=== PATIENT | female | born 1965 | race Caucasian/White ===

== ENCOUNTER → 2017-04-03 | Outpatient (CLI) | payer BC ==
--- NOTE | 2017-04-03 13:16 | MAMMOGRAPHY REPORT ---
BILATERAL DIGITAL SCREENING MAMMOGRAM TOMOSYNTHESIS WITH CAD: 04/03/2017 CLINICAL HISTORY: Routine screening. Patient has no complaints. TECHNIQUE: Breast tomosynthesis in addition to standard 2D mammography was performed. Current study was also evaluated with a Computer Aided Detection (CAD) system. COMPARISON: Comparison is made to exams dated: 03/29/2016 mammogram, 01/12/2015 mammogram, 01/11/2014 m ammogram, 01/05/2013 mammogram, 12/31/2011 mammogram, and 11/16/2010 [facility]. BREAST COMPOSITION: The tissue of both breasts is extremely dense, which lowers the sensitivity of m ammography. FINDINGS: A 3 cm asymmetry in the far superior posterior left breast, projecting over the pectoralis muscle on the MLO view appears similar in size and appearance dating back to at least 10/19/2008, the refore likely benign. No new suspicious mass, architectural distortion or cluster of microcalcificat ions is seen. IMPRESSION: ACR BI-RADS CATEGORY 1: NEGATIVE There is no mammographic evidence of malignancy. A 1 year screening mammogram is recommended. The pa tient will receive written notification of the results. Approximately 10% of breast cancers are not detected with mammography. A negative mammographic report should not delay biopsy if a clinically suggestive mass is present. Raine Martinez M.D. ay/:04/03/2017 09:25:26 Credit Controller: Sandrita JANG)([place]), [facility] letter sent: Normal 1/2 BI-RADS Code: ACR BI-RADS Category 1: Negative
== END ==
LOC: C.MAMM 07:46
PROVIDERS: ATTEND Physician Assistant
DX: Z12.31 Encounter for screening mammogram for malignant neoplasm of breast (principal)

== ENCOUNTER → 2017-06-20 | Outpatient (CLI) | payer BC ==
--- NOTE | 2017-06-20 13:04 | DIAGNOSTIC IMAGING REPORT ---
R SHOULDER MIN 2 VIEWS CLINICAL HISTORY: 52 years-old Female presenting with RIGHT SHOULDER PAIN. TECHNIQUE: Frontal and transscapular views of the right shoulder were obtained. COMPARISON: None. FINDINGS: Glenohumeral and acromioclavicular joints congruent. No acute fracture or malalignment. No radiographic soft tissue abnormality. Concave undersurface of the acromion. Apparent nodular opacity in the right apex. IMPRESSION: 1. No acute osseous injury of the right shoulder. 2. Apparent nodular opacity in the right apex may represent summation shadows versus a pulmonary nodule. CT chest could be obtained if clinically indicated. Electronically signed by: Lobo Fitch M.D. 06/20/2017 1:03 PM Dictated Date/Time: 06/20/2017 12:58 PMe
== END | disposition home or self-care (01) ==
LOC: C.RDSM 11:42
PROVIDERS: ATTEND Internal Medicine
DX: M25.511 Pain in right shoulder (principal)

== ENCOUNTER → 2017-06-25 | Outpatient (CLI) | payer BC ==
--- NOTE | 2017-06-25 14:44 | DIAGNOSTIC IMAGING REPORT ---
R UPPER EXT JOINT WITHOUT CLINICAL HISTORY: ROTATOR CUFF TEAR pain TECHNIQUE: Multiaxial MRI acquisition COMPARISON STUDY: None FINDINGS: Signal characteristics the osseous structures are unremarkable. The acromioclavicular joint is aligned anatomically. There is no significant joint effusion. There are findings of moderate edematous change with underlying tendinopathy of the supraspinatus. No well-defined full-thickness rotator cuff tear is appreciated. There are findings of mild tendinitis involving the infraspinatus tendon. This is also seen to a minimal degree at the subscapularis tendon level. There is moderate truncation of the glenoid labrum consistent with degenerative change. Biceps tendon is intact within the bicipital groove. There is trace amount of fluid surrounding the biceps tendon. IMPRESSION: 1. Moderate/rather significant supraspinatus tendinitis. 2. No evidence for full-thickness rotator cuff tear. 3. Mild subscapularis and infraspinatus tendinitis. 4. Moderate degenerative truncation apex of the glenoid labrum 5. Mild biceps tendinitis. The above report was generated using voice recognition software. It may contain grammatical, syntax or spelling errors. Electronically signed by: Eduard Belcher M.D. 06/25/2017 2:43 PM Dictated Date/Time: 06/25/2017 2:37 PM
== END | disposition home or self-care (01) ==
LOC: C.MRIBC 13:41
PROVIDERS: ATTEND Family Medicine
DX: M75.101 Unspecified rotator cuff tear or rupture of right shoulder, not specified as traumatic (principal)

== ENCOUNTER → 2017-07-02 | Outpatient (CLI) | payer BC, OTHER ==
--- NOTE | 2017-07-02 09:46 | DIAGNOSTIC IMAGING REPORT ---
CHEST 2 VIEWS ROUTINE CLINICAL HISTORY: 52 years-old Female presenting with EVALUATE FOR PRESENCE OF POSSIBLE NODULE RIGHT APEX. TECHNIQUE: PA and lateral views of the chest were obtained. COMPARISON: None. FINDINGS: Cardiomediastinal silhouette normal. Lungs and pleural spaces clear. Osseous structures normal. Upper abdomen normal. IMPRESSION: 1. No acute cardiopulmonary disease. Electronically signed by: Lobo Fitch M.D. 07/02/2017 9:45 AM Dictated Date/Time: 07/02/2017 9:44 AM
== END | disposition home or self-care (01) ==
LOC: C.RDSM 09:35
PROVIDERS: ATTEND Internal Medicine
DX: M25.511 Pain in right shoulder (principal)

== ENCOUNTER → 2017-07-31 | Outpatient (CLI) | payer OTHER ==
--- NOTE | 2017-07-31 10:30 | DIAGNOSTIC IMAGING REPORT ---
CHEST-PA,LAT AND OBLIQUE VIEWS CLINICAL HISTORY: Abnormal chest CT. Possible right lung nodule. COMPARISON STUDY: Chest radiograph July 02, 2017. FINDINGS: A previous chest CT was not available for comparison. Lung volumes are normal. No pneumothorax or pleural effusion is identified. There is a suspected 5 mm calcified right upper lobe nodule. Cardiac size is normal. Mediastinal contours are normal. There is no evidence for pulmonary edema. Pectus carinatum deformity is noted. IMPRESSION: Suspected 5 mm calcified right upper lobe nodule consistent with a granuloma. No noncalcified right lung nodules identified however nodules may be occult by radiography. If previous chest CT becomes available, comparison could be made. Electronically signed by: Altaf Obando M.D. 07/31/2017 10:29 AM Dictated Date/Time: 07/31/2017 10:25 AM
== END | disposition home or self-care (01) ==
LOC: C.RAD1850 10:05
PROVIDERS: ATTEND Physician Assistant
DX: R93.8 Abnormal findings on diagnostic imaging of other specified body structures (principal); R91.8 Other nonspecific abnormal finding of lung field